=== PATIENT | female | born 2000 | race Caucasian/White ===

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

== ENCOUNTER 2021-08-26 11:36 | Emergency (ER) | payer MEDICAID, OTHER ==
[~2021-08-26] VITALS: Ht 149.9 cm; Wt 39.5 kg
--- NOTE | 2021-08-26 11:59 | NUR ---
RECIEVED PT 20YRS FEMALE WALKING IN ACCOMPANY BY MOTHER c/o SOB FOR 2 DAYS NO ACUTE DISTRESSS SKIN WARM AND DRY TO TOUCH TO KEEP PT COMFORTABLE ALL TIME
--- NOTE | 2021-08-26 13:47 | NUR ---
NANCY GAN SENT TO LAB
[2021-08-26 14:59] VITALS: BP 105/67
--- NOTE | 2021-08-26 15:00 | NUR ---
NO SOB OR DISTRESS D/C INSTRACTION GIVEN TO PT AND MOTHER FULLY AND VERBLIZED UNDERSTOOD D/C HOME WITH FALLOW UP CARE WITH PCP
== END 2021-08-26 15:21 | disposition home or self-care (01) ==
LOC: ER 11:54
DX: R07.89 Other chest pain (principal); Z20.822 Contact with and (suspected) exposure to COVID-19; G70.00 Myasthenia gravis without (acute) exacerbation
CPT/HCPCS: 71045; 87426; 93005; 99285; C9803

== ENCOUNTER 2023-02-08 17:31 | Emergency (ER) | payer OTHER ==
[~2023-02-08] VITALS: Ht 152.4 cm; Wt 44.5 kg
[2023-02-08 17:51] VITALS: BP 117/78; TEMP 98
[2023-02-08] MEDS ORDERED: OMEP40CA21 PO (20:01)
[2023-02-08 20:36] VITALS: O2SAT 97
== END 2023-02-08 20:36 | disposition home or self-care (01) ==
LOC: ER 17:34
DX: R10.9 Unspecified abdominal pain (principal); K94.23 Gastrostomy malfunction

== ENCOUNTER 2023-12-23 21:14 | Emergency (ER) | payer OTHER ==
[~2023-12-23] VITALS: Ht 154.9 cm; Wt 44.5 kg
[~2023-12-23 21:14] MED LIST: OMEP40CA21 PO
[2023-12-23 23:18] LABS: BASOPHILS % (AUTO) 0.2 % (0.0-2.0); EOSINOPHILS % (AUTO) 0.3 % (0.0-6.0); HEMATOCRIT 40 % (33-45); HEMOGLOBIN 12.9 g/dL (11.5-14.8); LYMPHOCYTES # (AUTO) 1.4 K/uL (0.8-4.8); LYMPHOCYTES % (AUTO) 11.8 % (20.0-44.0); MEAN CORPUSCULAR HEMOGLOBIN 28 PG (26.0-33.0); MEAN CORPUSCULAR HGB CONC 32 g/dl (31.0-36.0); MEAN CORPUSCULAR VOLUME 88 fL (82-100); MONOCYTES # (AUTO) 0.8 K/uL (0.1-1.30); MONOCYTES % (AUTO) 7.1 % (2.0-12.0); NEUTROPHILS # (AUTO) 9.3 K/uL (1.8-8.9); NEUTROPHILS % (AUTO) 80.6 % (43.0-81.0); PLATELET COUNT (AUTO) 195 K/uL (150-450); RED BLOOD CELL COUNT(AUTO) 4.56 MIL/uL (4.0-5.2); RED CELL DISTRIBUTION WIDTH 15.7 % (11.5-15.0); WHITE BLOOD COUNT (AUTO) 11.6 K/uL (4.3-11.0)
[2023-12-23 23:27] LABS: CALCIUM, SERUM 9.2 mg/dL (8.5-10.1); CREATININE 0.4 mg/dL (0.6-1.3)
[2023-12-23 23:41] LABS: ALBUMIN 3.6 g/dL (3.4-5.0); BILIRUBIN,TOTAL 0.2 mg/dL (0.2-1.0); TOTAL PROTEIN, SERUM 8.1 g/dL (6.4-8.2)
[2023-12-23 23:55] LABS: PREGNANCY TEST URINE QUAL NEGATIVE (NEGATIVE)
[2023-12-23 23:56] LABS: ADD URINE CULTURE YES; APPEARANCE,URINE TURBID (CLEAR); BACTERIA,URINE Few /HPF (None Seen); BILIRUBIN,URINE NEGATIVE (NEGATIVE); BLOOD, URINE NEGATIVE Ery/uL (NEGATIVE); COLOR,URINE DARK YELLOW (YELLOW); KETONES,URINE NEGATIVE (NEGATIVE); LEUKOCYTE ESTERASE ,URINE 1+ (NEGATIVE); NITRITE, URINE POSITIVE (NEGATIVE); PROTEIN,URINE NEGATIVE (NEGATIVE); RBC,URINE 0-2 /HPF (0-2); SQUAMOUS EPITHELIAL CELL,UR Few /HPF (None Seen); UGLUCOSE NEGATIVE (NEGATIVE); UROBILINOGEN,URINE 0.2 EU/dL (0.2)
[2023-12-24] LABS: AMPHETAMINE, URINE NEGATIVE (NEGATIVE); BARBITURATE, URINE NEGATIVE (NEGATIVE); BENZODIAZEPINE, URINE NEGATIVE (NEGATIVE); CANNABINOID, URINE NEGATIVE (NEGATIVE); COCCAINE, URINE NEGATIVE (NEGATIVE); OPIATE, URINE NEGATIVE (NEGATIVE); PHENCYCLIDINE SCREEN,URINE NEGATIVE (NEGATIVE)
[2023-12-24] MEDS ORDERED: BENZ-13 PO (00:17)
[2023-12-24] MEDS ORDERED: AMOX-430 PO (00:17)
[2023-12-24 00:25] VITALS: BP 117/81; TEMP 98.1; O2SAT 98
== END 2023-12-24 00:25 | disposition home or self-care (01) ==
LOC: ER 21:24
DX: J40 Bronchitis, not specified as acute or chronic (principal); N39.0 Urinary tract infection, site not specified; G70.2 Congenital and developmental myasthenia; R06.02 Shortness of breath; Z87.09 Personal history of other diseases of the respiratory system
CPT/HCPCS: 36415; 71045-TC; 80053-TC; 81001; 83880; 84484-TC; 84703-TC; 85025-TC; 87086-TC